=== PATIENT | male | born 1965 | race Caucasian/White ===

== ENCOUNTER 2017-04-06 15:13 | Emergency (ER) | payer OTHER, SELFPAY ==
[2017-04-06] MEDS ORDERED: Aspirin 325 MG TAB ONE (15:35)
[2017-04-06] MEDS ORDERED: methylPREDNISolone Sod Succ/PF 125 MG/2 ML VIAL ONE (15:35)
[2017-04-06 16:02] LABS: #Eosinphils 0.2 thou/uL (0.0-0.7); #Lymphocytes 2.4 thou/uL (1.20-3.40); #Monocytes 0.5 thou/uL (0.11-0.59); #Neutrophils 5.9 thou/uL (1.40-6.50); %Basophils 0.5 % (0.0-1.0); %Eosinophils 2.1 % (0.0-10.0); %Lymphocytes 26.5 % (21.0-51.0); %Monocytes 5.3 % (0.0-10.0); %Neutrophils 65.6 % (42.0-75.0); Hemoglobin 15.7 g/dL (14.0-18.0); Mean Corpuscular HGB CONC 30.6 g/dL (32.0-36.0); Mean Corpuscular Hemoglobin 29.8 pg (27.0-31.0); Mean Corpuscular Volume 97.5 fl (80.0-94.0); Mean Platelet Volume 7.6 fL (7.4-10.4); Platelet Count 247 thou/uL (130-400); Red Blood Cell (RBC) Count 5.27 mill/uL (4.70-6.10)
[2017-04-06 16:13] LABS: ALT (SGPT) 58 U/L (8-55); AST (SGOT) 24 U/L (5-34); Albumin 3.4 g/dL (3.5-5.0); Alkaline Phosphatase 87 U/L (40-150); Anion Gap 13 mmol/L (10-20); BUN (Urea Nitrogen) 14 mg/dL (8.4-25.7); Bilirubin, Total 0.6 mg/dL (0.2-1.2); Calc. Creatinine Clearance 0 mL/min (70-130); Calcium 9.2 mg/dL (7.8-10.44); Carbon Dioxide 34 mmol/L (22-29); Chloride 97 mmol/L (98-107); Estimated GFR-MDRD Greater than 90; Globulin 4.8 g/dL (2.4-3.5); Glucose 140 mg/dL (70-105); Potassium 3.6 mmol/L (3.5-5.1); Protein, Total 8.2 g/dL (6.0-8.3); Sodium 140 mmol/L (136-145)
[2017-04-06 16:17] LABS: CKMB 1.1 ng/mL (0-6.6); Troponin I Less than 0.010 ng/mL (< 0.028)
--- NOTE | 2017-04-06 16:27 | RAD ---
PORTABLE CHEST: 04/06/17 HISTORY: Cough. COMPARISON: 06/29/16. FINDINGS/IMPRESSION: The exam is somewhat limited due to attenuation artifact. No definite infiltrate or effusion seen on this portable projection. If there is concern of pneumonia, recommend upright PA and lateral views of the chest for better edinson luation. POS: [facility]
--- NOTE | 2017-04-06 17:11 | RAD ---
TWO VIEWS OF THE CHEST 04/06/17 COMPARISON: 06/29/16 HISTORY: Cough. FINDINGS: There is no pneumothorax, pleural fluid, focal consolidation, or alveolar edema. Heart and mediastin al contours are stable. The cardiac silhouette is mildly prominent on the lateral view. The lungs ar e mildly hyperinflated, a stable finding. There is stable degenerative change of the lower thoracic spine. IMPRESSION: Stable appearance of the chest. No acute findings. POS: [facility]
[2017-04-06] MEDS ORDERED: Levofloxacin 500 mg/D5W 100 ml Premix Bag ONE (17:48)
[2017-04-06] MEDS ORDERED: Potassium Chloride 20 MEQ TAB ONE (18:01)
== END 2017-04-06 19:37 | disposition home or self-care (01) ==
LOC: MADERS 15:13
DX: J44.1 Chronic obstructive pulmonary disease with (acute) exacerbation (principal); K21.9 Gastro-esophageal reflux disease without esophagitis; E78.5 Hyperlipidemia, unspecified; I10 Essential (primary) hypertension; K51.90 Ulcerative colitis, unspecified, without complications; F17.210 Nicotine dependence, cigarettes, uncomplicated; Z79.899 Other long term (current) drug therapy
CPT/HCPCS: 71010; 71020; 80053; 82553; 83880; 84484; 85025; 85379; 93005; 94640; 96365; 96375; J1956; J2930; J7620